=== PATIENT | female | born 1985 | race Hispanic/Latino ===

== ENCOUNTER 2018-05-24 20:30 | Emergency (ER) | payer SELFPAY ==
[2018-05-24] MEDS ORDERED: LIDOCAINE 1% MPF 5 ML VIAL ONE (22:11)
--- NOTE | 2018-05-24 22:23 | EDPHYS ---
Physician Documentation [facility] Name: Lyla Paredes Age: 33 yrs Sex: Female : 1985 Arrival Date: 05/24/2018 Time: 20:34 Bed 23 Private MD: ED Physician John Morales HPI: 05/24 22:08 This 33 yrs old Female presents to ER via Ambulatory with complaints of snw Abscess. 22:08 The patient presents with an abscess of the abdomen. Description: The affected area is snw very small, small, localized, erythematous, fluctuant. Onset: The symptoms/episode began/occurred suddenly, 1.5 week(s) ago, and became persistent. Associated signs and symptoms: Pertinent positives: tenderness. Severity of symptoms: At their worst the symptoms were moderate, severe. It is unknown whether or not the patient has had similar symptoms in the past. It is unknown whether or not the patient has recently seen a physician. 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 - Social history:: Smoking status: Patient uses tobacco products, smokes one pack cigarettes per day. - Ebola Screening: : Patient negative for fever greater than or equal to 101.5 degrees Fahrenheit, and additional compatible Ebola Virus Disease symptoms Patient denies exposure to infectious person Patient denies travel to an Ebola-affected area in the 21 days before illness onset No symptoms or risks identified at this time. ROS: 22:07 Constitutional: Negative for fever, chills, and weight loss, Eyes: Negative for injury, snw pain, redness, and discharge, ENT: Negative for injury, pain, and discharge, Neck: Negative for injury, pain, and swelling, Cardiovascular: Negative for chest pain, palpitations, and edema, Respiratory: Negative for shortness of breath, cough, wheezing, and pleuritic chest pain, Back: Negative for injury and pain, : Negative for injury, bleeding, discharge, and swelling, MS/Extremity: Negative for injury and deformity, Skin: Negative for injury, rash, and discoloration, Neuro: Negative for headache, weakness, numbness, tingling, and seizure. 22:07 Abdomen/GI: Positive for pain at site of abscess x 1.5 weeks. Exam: 22:05 Constitutional: This is a well developed, well nourished patient who is awake, alert, snw and in no acute distress. Head/Face: Normocephalic, atraumatic. Eyes: Pupils equal round and reactive to light, extra-ocular motions intact. Lids and lashes normal. Conjunctiva and sclera are non-icteric and not injected. Cornea within normal limits. Periorbital areas with no swelling, redness, or edema. ENT: Nares patent. No nasal discharge, no septal abnormalities noted. Tympanic membranes are normal and external auditory canals are clear. Oropharynx with no redness, swelling, or masses, exudates, or evidence of obstruction, uvula midline. Mucous membranes moist. Neck: Trachea midline, no thyromegaly or masses palpated, and no cervical lymphadenopathy. Supple, full range of motion without nuchal rigidity, or vertebral point tenderness. No Meningismus. Chest/axilla: Normal chest wall appearance and motion. Nontender with no deformity. No lesions are appreciated. Cardiovascular: Regular rate and rhythm with a normal S1 and S2. No gallops, murmurs, or rubs. Normal PMI, no JVD. No pulse deficits. Respiratory: Lungs have equal breath sounds bilaterally, clear to auscultation and percussion. No rales, rhonchi or wheezes noted. No increased work of breathing, no retractions or nasal flaring. Back: No spinal tenderness. No costovertebral tenderness. Full range of motion. MS/ Extremity: Pulses equal, no cyanosis. Neurovascular intact. Full, normal range of motion. Neuro: Awake and alert, GCS 15, oriented to person, place, time, and situation. Cranial nerves II-XII grossly intact. Motor strength 5/5 in all extremities. Sensory grossly intact. Cerebellar exam normal. Normal gait. Psych: Awake, alert, with orientation to person, place and time. Behavior, mood, and affect are within normal limits. 22:05 Abdomen/GI: Inspection: abscess, small, fluctuant, tender, just above scar, Bowel sounds: normal, Palpation: abdomen is soft and non-tender. 22:05 Skin: Appearance: normal except for affected area, vitiligo. Vital Signs: 20:57 BP 132 / 81; Pulse 93; Resp 17; Temp 98.4; Pulse Ox 98% on R/A; Weight 83.91 kg; Height aj 5 ft. 2 in. (157.48 cm); 22:41 BP 126 / 89; Pulse 77; Resp 17; Pulse Ox 100% on R/A; Pain 4/10; ed1 20:57 Body Mass Index 33.84 (83.91 kg, 157.48 cm) aj Procedures: 22:24 I \T\ D: Incision and drainage was performed for an abscess of the suprapubic area snw Prepped with chlorhexidine. Anesthetized with 4 ml's 1% Lidocaine. Incised with #11 blade. Drained small amount Abscess cavity explored. Dressing: sterile 4x4 gauze, the patient tolerated the procedure well, long ingrown hair removed. MDM: 21:15 Patient medically screened. snw 22:23 Data reviewed: vital signs, nurses notes. Data interpreted: Pulse oximetry: on room air snw is 98 %. Interpretation: normal. Counseling: I had a detailed discussion with the patient and/or guardian regarding: the historical points, exam findings, and any diagnostic results supporting the discharge/admit diagnosis, the presence of at least one elevated blood pressure reading (>120/80) during this emergency department visit, the need for outpatient follow up, to return to the emergency department if symptoms worsen or persist or if there are any questions or concerns that arise at home. Response to treatment: the patient's symptoms have markedly improved after treatment, and as a result, I will discharge patient. Special discussion: Based on the patient's Hx, exam, and Dx evaluation, there is no indication for emergent surgery or inpatient Tx. It is understood by the patient/guardian that if the Sx's persist or worsen they need to return immediately for re-evaluation. I have referred the patient to see his PCP for further evaluation of high blood pressure. Based on the history and exam findings, there is no indication for further emergent testing or inpatient evaluation. I discussed with the patient/guardian the need to see the primary care provider for further evaluation of the symptoms. 05/24 22:01 Order name: Dressing - Wound; Complete Time: 22:16 snw 05/24 22:01 Order name: Setup Suture Tray; Complete Time: 22:16 snw Administered Medications: 22:15 Drug: Lidocaine (1 %) 5 mg Route: Infiltration; ed1 22:39 Drug: Clindamycin 300 mg Route: PO; ed1 22:40 Follow up: Response: Medication administered at discharge. ed1 22:40 Drug: [place] (7.5 mg-325 mg) 1 tabs Route: PO; ed1 22:40 Follow up: Response: Medication administered at discharge. ed1 22:40 Drug: Zofran 4 mg Route: PO; ed1 22:41 Follow up: Response: Medication administered at discharge. ed1 Disposition: 05/25 04:10 Co-signature as Attending Physician, John Morales MD. Disposition: 05/24/18 22:22 Discharged to Home. Impression: Cutaneous abscess of lower abdomen. - Condition is Stable. - Discharge Instructions: Skin Abscess, Delayed Wound Closure, Wound Care. - Prescriptions for Clindamycin HCl 300 mg Oral Capsule - take 1 capsule by ORAL route every 6 hours for 10 days; 40 capsule. Zofran 4 mg Oral Tablet - take 1 tablet by ORAL route every 12 hours As needed; 20 tablet. Diclofenac Sodium 75 mg Oral Tablet Sustained Release - take 1 tablet by ORAL route 2 times per day; 30 tablet. - Medication Reconciliation Form, Thank You Letter, Antibiotic Education, Prescription Opioid Use form. - Follow up: Private Physician; When: 2 - 3 days; Reason: Recheck today's complaints, Continuance of care, Re-evaluation by your physician. Follow up: Emergency Department; When: As needed; Reason: Worsening of condition. Signatures: Emilia Duque RN RN aj Therrien, Shelly, REGULATOR INSPECTOR-C REGULATOR INSPECTOR-Csnw Eliana Obrien, DIRECTOR FUNERAL DIRECTOR FUNERAL ed1 John Morales MD MD Corrections: (The following items were deleted from the chart) 05/24 22:25 22:24 I \T\ D: Incision and drainage was performed for an abscess of the suprapubic area snw Prepped with chlorhexidine. snw 22:42 22:22 05/24/2018 22:22 Discharged to Home. Impression: Cutaneous abscess of lower ed1 abdomen. Condition is Stable. Forms are Medication Reconciliation Form, Thank You Letter, Antibiotic Education, Prescription Opioid Use. Follow up: Private Physician; When: 2 - 3 days; Reason: Recheck today's complaints, Continuance of care, Re-evaluation by your physician. Follow up: Emergency Department; When: As needed; Reason: Worsening of condition. snw
--- NOTE | 2018-05-24 22:23 | ER ---
Nurse's Notes [facility] Name: Lyla Paredes Age: 33 yrs Sex: Female : 1985 Arrival Date: 05/24/2018 Time: 20:34 Bed 23 Private MD: Diagnosis: Cutaneous abscess of lower abdomen Presentation: 05/24 20:56 Presenting complaint: Patient states: Abscess to LLQ for 1 week. Transition of care: aj patient was not received from another setting of care. Onset of symptoms was May 24, 2018. Risk Assessment: Do you want to hurt yourself or someone else? Patient reports no desire to harm self or others. Initial Sepsis Screen: Does the patient meet any 2 criteria? No. Patient's initial sepsis screen is negative. Does the patient have a suspected source of infection? No. Patient's initial sepsis screen is negative. Care prior to arrival: None. 20:56 Method Of Arrival: Ambulatory 20:56 Acuity: RANDELL 4 aj Triage Assessment: 20:57 General: Appears in no apparent distress. comfortable, Behavior is calm, cooperative, aj appropriate for age. Pain: Complains of pain in left lower quadrant. Neuro: Level of Consciousness is awake, alert, obeys commands, Oriented to person, place, time, situation, Appropriate for age. Respiratory: Airway is patent Respiratory effort is even, unlabored, Respiratory pattern is regular, symmetrical. GI: Abdomen is obese, Reports nausea. Derm: Skin is intact, is healthy with good turgor, Skin is pink, warm \T\ dry. normal, Abscess located on left lower quadrant is dime sized, is red. 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 - Social history:: Smoking status: Patient uses tobacco products, smokes one pack cigarettes per day. - Ebola Screening: : Patient negative for fever greater than or equal to 101.5 degrees Fahrenheit, and additional compatible Ebola Virus Disease symptoms Patient denies exposure to infectious person Patient denies travel to an Ebola-affected area in the 21 days before illness onset No symptoms or risks identified at this time. Screenin:41 Abuse screen: Denies threats or abuse. Denies injuries from another. Nutritional ed1 screening: No deficits noted. Tuberculosis screening: No symptoms or risk factors identified. Fall Risk None identified. Assessment: 21:45 General: Appears uncomfortable, Behavior is calm, cooperative. Pain: Complains of pain ed1 in suprapubic area, right lower quadrant and left lower quadrant Pain currently is 8 out of 10 on a pain scale. Quality of pain is described as crampy, Pain began 1 day ago. Is continuous. Neuro: Level of Consciousness is awake, alert, obeys commands, Oriented to person, place, time, situation. Cardiovascular: Denies chest pain, Heart tones S1 S2 present. Respiratory: Airway is patent Respiratory effort is even, unlabored, Respiratory pattern is regular, symmetrical, Breath sounds are clear bilaterally. GI: Abdomen is non-distended, Bowel sounds present X 4 quads. Abd is soft and non tender X 4 quads. Reports lower abdominal pain, Patient currently denies diarrhea, nausea, vomiting. : No signs and/or symptoms were reported regarding the genitourinary system. EENT: No signs and/or symptoms were reported regarding the EENT system. Derm: Abscess located on suprapubic area is nickel sized, has no drainage, is hot to touch, is red, is raised. 22:41 Reassessment: Patient appears in no apparent distress at this time. Patient and/or ed1 family updated on plan of care and expected duration. Pain level reassessed. Patient is alert, oriented x 3, equal unlabored respirations, skin warm/dry/pink. Patient states feeling better. Patient states symptoms have improved. Vital Signs: 20:57 BP 132 / 81; Pulse 93; Resp 17; Temp 98.4; Pulse Ox 98% on R/A; Weight 83.91 kg; Height aj 5 ft. 2 in. (157.48 cm); 22:41 BP 126 / 89; Pulse 77; Resp 17; Pulse Ox 100% on R/A; Pain 4/10; ed1 20:57 Body Mass Index 33.84 (83.91 kg, 157.48 cm) ED Course: 20:34 Patient arrived in ED. am2 20:57 Triage completed. aj 20:57 Arm band placed on left wrist. Patient placed in waiting room, Patient notified of wait aj time. 21:13 Eliana Obrien LVN is Primary Nurse. ed1 21:14 Varsha Barboza [facility]. snw 21:14 John Morales MD is Attending Physician. snw 22:41 Patient has correct armband on for positive identification. ed1 22:41 No provider procedures requiring assistance completed. Patient did not have IV access ed1 during this emergency room visit. Administered Medications: 22:15 Drug: Lidocaine (1 %) 5 mg Route: Infiltration; ed1 22:39 Drug: Clindamycin 300 mg Route: PO; ed1 22:40 Follow up: Response: Medication administered at discharge. ed1 22:40 Drug: [place] (7.5 mg-325 mg) 1 tabs Route: PO; ed1 22:40 Follow up: Response: Medication administered at discharge. ed1 22:40 Drug: Zofran 4 mg Route: PO; ed1 22:41 Follow up: Response: Medication administered at discharge. ed1 Outcome: 22:22 Discharge ordered by . snw 22:41 Discharged to home ambulatory, with family. ed1 22:41 Condition: good 22:41 Discharge instructions given to patient, Instructed on discharge instructions, follow up and referral plans. medication usage, Demonstrated understanding of instructions, follow-up care, medications, Prescriptions given X 3. 22:42 Patient left the ED. ed1 Signatures: Emilia Duque RN Varsha Loredo FNP-C TUBE CLOSING MACHINE OPERATOR-Csn Eliana Obrien LVN LVN ed1 Emilia Jaeger
[2018-05-24] MEDS ORDERED: HYDROCODONE/APAP 7.5/325 MG TAB ONE (22:45)
[2018-05-24] MEDS ORDERED: ONDANSETRON 4 MG (ODT) TAB ONE (22:45)
[2018-05-24] MEDS ORDERED: CLINDAMYCIN HCL 150 MG CAP ONE (22:45)
== END 2018-05-24 22:42 | disposition home or self-care (01) ==
LOC: ER 20:30
PROC: 0J980ZZ Drainage of Abdomen Subcutaneous Tissue and Fascia, Open Approach (ICD-10-PCS; principal; 2018-05-24)
DX: L02.211 Cutaneous abscess of abdominal wall (principal); F17.210 Nicotine dependence, cigarettes, uncomplicated
CPT/HCPCS: 99283